=== PATIENT | female | born 1965 | race American Indian/Alaskan Native ===

== ENCOUNTER 2019-08-22 12:39 | Outpatient (CLI) | payer BC ==
--- NOTE | 2019-08-22 14:14 | XRay Report ---
LEFT FOOT 3 VIEWS INDICATION / CLINICAL INFORMATION: M20.22 Hallux rigidus, left foot COMPARISON: None available. FINDINGS: BONES / JOINT(S): Post osteotomy changes at the first metatarsal and proximal phalanx of the first di git. Satisfactory alignment. No bony injury . Moderate DJD first metatarsophalangeal joint. SOFT TISSUES: No significant abnormality. ADDITIONAL FINDINGS: None. Signer Name: Corby Holbrook MD Signed: 08/22/2019 2:09 PM Workstation Name: [email or web address]
== END 2019-08-22 12:40 | disposition home or self-care (01) ==
LOC: XRAY 12:39
PROVIDERS: ATTEND Podiatrist Foot & Ankle Surgery
DX: M19.072 Primary osteoarthritis, left ankle and foot (principal); M20.22 Hallux rigidus, left foot